=== PATIENT | male | born 1980 | race Caucasian/White ===

== ENCOUNTER → 2016-12-09 | Outpatient (CLI) | payer BC ==
--- NOTE | ~2016-12-09 | NDGEN ---
PATIENT'S NAME: JAYNA ARTEAGA [facility] AGE: 36 Y [address] ROOM: [place] [address] LOCATION: [facility] ADMIT DATE: 12/09/2016 Neuro[facility]ostics DISCHARGE DATE: FAMILY PHYSICIAN: PHYSICIAN, NO ATTENDING PHYSICIAN: Seven Guzman PROCEDURE: NERVE CONDUCTION STUDIES/EMG DATE OF PROCEDURE: 12/09/2016 PROCEDURES PERFORMED: Nerve conduction study of the bilateral upper extremities and EMG of the right upper extremity. INDICATIONS FOR PROCEDURE: This is a 36-year-old male who has complaints of numbness in the bilateral hands, thus we wanted to rule out carpal tunnel syndrome with a median neuropathy at the wrist. Furthermore, he also complains about some pain or numbness in a radicular pattern from the upper shoulder to the lateral deltoid on the right. The patient does have a known history of some cervical radiculopathy symptoms, but we want to find out if there is any electrical evidence of this. PROCEDURE DETAILS: Nerve conduction studies were performed in the median, ulnar, motor, and sensory nerves. The results revealed normal motor onset latencies, amplitudes, and nerve conduction velocities in these nerves tested. Therefore, no evidence of a median neuropathy was seen at the wrist or evidence for polyneuropathy of the bilateral upper extremities was seen. Next, a needle EMG was done to rule out evidence for cervical radiculopathy. However, the needle placed in the deltoid, triceps, and biceps of the right upper extremity. There was no evidence of spontaneous electrical activity at rest or were there any abnormalities of recruitment of motor unit action potentials seen. IMPRESSION: There is no evidence to support a median neuropathy at the wrist or was there any electrical evidence of a cervical radiculopathy. LOULOU OLSON MD PATIENT'S NAME: JAYNA ARTEAGA [facility] AGE: 36 Y [address] ROOM: [place] [address] LOCATION: [facility] ADMIT DATE: 12/09/2016 Neurodiagnostics DISCHARGE DATE: FAMILY PHYSICIAN: PHYSICIAN, NO ATTENDING PHYSICIAN: Seven Guzman/modl /[id number] dtt: 12/15/16 1556 WESLEY JASON R. dtd: 12/09/16 2020
== END | disposition disaster alternative care site (69) ==
LOC: GNEU 11-03 15:00
DX: M54.12 Radiculopathy, cervical region (principal)